=== PATIENT | male | born 2000 | race Caucasian/White ===

== ENCOUNTER 2022-02-18 10:35 | Emergency (ER) | payer OTHER ==
[~2022-02-18] VITALS: Ht 185.4 cm; Wt 70.3 kg
--- NOTE | 2022-02-18 11:41 | NUR ---
at bedside for evaluation.
[2022-02-18 12:34] VITALS: BP 121/75
--- NOTE | 2022-02-18 12:34 | NUR ---
Patient discharged to home in stable condition. Written and verbal after care instructions given. Patient verbalizes understanding of instructions. Stressed follow up or return to ER for worsening s/s.
== END 2022-02-18 12:37 | disposition home or self-care (01) ==
LOC: ER 10:35
DX: S92.001A Unspecified fracture of right calcaneus, initial encounter for closed fracture (principal); Y93.39 Activity, other involving climbing, rappelling and jumping off; Y93.89 Activity, other specified; Y92.89 Other specified places as the place of occurrence of the external cause
CPT/HCPCS: 73630; A4663